=== PATIENT | female | born 1965 | race African-American/Black ===

== ENCOUNTER 2017-05-03 09:49 | Emergency (ER) | payer OTHER ==
[2017-05-03 09:56] VITALS: BP 149/79; PULSE 82; TEMP 98.8; BMI 34.2
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
[2017-05-03] MEDS ORDERED: IBUPROFEN 600 MG TABLET (FP) PO ONE (10:48)
[2017-05-03] MEDS ORDERED: IBUPROFEN 400 MG TABLET (FP) PO ONE (10:50)
== END 2017-05-03 11:26 | disposition home or self-care (01) ==
LOC: JERFT 09:49
PROC: 2W3CX1Z Immobilization of Right Lower Arm using Splint (ICD-10-PCS; principal; 2017-05-03)
DX: S62.101A Fracture of unspecified carpal bone, right wrist, initial encounter for closed fracture (principal); W18.39XA Other fall on same level, initial encounter; Y93.89 Activity, other specified; Y92.9 Unspecified place or not applicable; J45.909 Unspecified asthma, uncomplicated; F17.210 Nicotine dependence, cigarettes, uncomplicated
CPT/HCPCS: 73110-TC-RT-FY; 73130-TC-RT-FY; 99282-25

== ENCOUNTER 2017-05-09 14:10 | Day surgery (SDC) | payer OTHER ==
[2017-05-08 14:14] VITALS: BMI 34.2
--- NOTE | 2017-05-09 14:08 | HP ---
[facility] - Chief Complaint Chief Complaint: right wrist fx - Past Medical History Allergies/Adverse Reactions: Allergies Allergy/AdvReac Type Severity Reaction Status Date / Time Penicillins Allergy Unknown Verified 05/08/17 14:15 seafood Allergy Severe throat Uncoded 05/08/17 14:15 closure - Current Medications Current Medications: Home Medications Medication Instructions Recorded Albuterol Sulfate Inhaler - 1 - 2 inh PO QID PRN 05/08/17 [Ventolin HFA Inhaler -] Hydrochlorothiazide 12.5 mg PO DAILY 05/08/17 Satellite Physical Exam - Physical Examination General Appearance: Well Nourished, Well Developed, Alert & Oriented x3 ENT: Clear Lung: Normal air movement Heart: Regular rate & rhythm Extremities: Other (right wrist- splint intact, + swelling, + ttp, nvi xrays show dsiplaced distal radius fx) Neurological: Intact, Alert, Oriented Satellite Impression/Plan - Impression/Plan Impression: right distal radius fx Operative Procedure: right distal radius orif Date to be Performed: 05/09/17
[~2017-05-09 14:10] MED LIST: LACTATED RINGERS SOLUTION 1,000 ML IV SCH; ONDANSETRON 4 MG/2 ML VIAL IVPUSH PRN; oxyCODONE HCL 5 MG TABLET PO PRN
[2017-05-09] MEDS ORDERED: BUPIVACAINE HCL/PF 0.5% (5MG/ML) 10 ML VIAL ONE ×2 (14:28→15:59)
[2017-05-09] MEDS ORDERED: DEXAMETHASONE SOD PHOSPHATE/PF 10 MG/ML SDV ONE (14:28)
[2017-05-09] MEDS ORDERED: MIDAZOLAM HCL 2 MG/2 ML SINGLE DOSE VIAL ONE ×2 (14:31)
[2017-05-09] MEDS ORDERED: DEXAMETHASONE SOD PHOSPHATE 4 MG/1 ML VIAL ONE ×2 (16:08→17:13)
[2017-05-09] MEDS ORDERED: LIDOCAINE HCL/PF 2% SDV 5ML VIAL ONE (16:09)
[2017-05-09] MEDS ORDERED: PROPOFOL 20 ML ONE (16:10)
[2017-05-09] MEDS ORDERED: CLINDAMYCIN 600 MG PREMIX BAG IVPB ONE (16:20)
[2017-05-09] MEDS ORDERED: CLINDAMYCIN PHOSPHATE 600 MG/4 ML VIAL ONE (16:20)
--- NOTE | 2017-05-09 17:33 | OP ---
Operative Note - Note: Operative Date: 05/09/17 Pre-Operative Diagnosis: right distal radius fracture Operation: right distal radius ORIF Implants: [employer] low profile DV plate and screws Surgeon: Jaime Zaldivar Special Education Assistant: Billy Light Anesthesiologist/SUPERVISOR [employer]: Avi Cadena Anesthesia: General, Local Estimated Blood Loss (mls): 0 Drains, Volume Out (mls): 0 Blood Volume Replaced (mls): 0 Fluid Volume Replaced (mls): 500 Operative Report Dictated: Yes
--- NOTE | 2017-05-09 18:17 | SPEC ---
DATE OF OPERATION: 05/09/2017 PREOPERATIVE DIAGNOSIS: Right distal radius fracture. POSTOPERATIVE DIAGNOSIS: Right distal radius fracture. PROCEDURE: Right distal radius open reduction internal fixation. SURGEON: Jaime Zaldivar M.D. CRUSHED STONE GRADER: Gabrielle Pro ANESTHESIOLOGIST: Avi Cadena M.D. ANESTHESIA: Right interscalene block and LMA anesthesia. DRAINS: None. COMPLICATIONS: None. SPECIMEN: None. IMPLANTS USED: [employer] standard plate with screws. BLOOD LOSS: None. BLOOD GIVEN: None. FLUID REPLACEMENT: 700 mL Plasmalyte. INDICATION: This patient is a 52-year-old female with preoperative diagnosis of displaced angulated right distal radius fracture. After understanding the potential risks, complications, alternatives, benefits to surgery versus nonsurgical treatment, the patient elected to pursue this procedure. DESCRIPTION OF PROCEDURE: Patient brought to operating room, peripheral IV placed, IV sedation given. She received a right interscalene block. LMA anesthesia was introduced. She received 600 mg of clindamycin. The entire case was done under 3.8 loupe magnification. Typical FCR approach was marked out with a marking pen and incision made with No. 15 scalpel blade. Subcutaneous hemostasis was achieved with a bipolar cautery. The radial artery was retracted gently in a radial direction and ulnar to this, using a fresh No. 15 scalpel blade, the muscular fascia was incised. Blunt dissection was done with my index finger down to the volar aspect of the distal radius. Weitlaner retractors were placed deep into the wound for visualization. A periosteal elevator was used to do subperiosteal dissection exposing the fracture site. There was a main transverse component to the distal radius fracture but in addition there were several pieces, some extending towards the radial carpal joint and some towards the distal radial ulnar joint. The fracture site was copiously irrigated and washed out. All debris including hematoma and muscle were removed. A provisional reduction was performed and seemed to come together quite nicely. There was a small metaphyseal defect. X-rays were taken in A-P and lateral planes documenting excellent position of the fracture fragments, restoring radial height inclination and volar tilt. Next a standard hand innovations left volar low profile DVR plate was placed on the volar aspect of the distal radius. Two K-wires were placed and x-rays were taken documenting excellent position, length and subchondral position. Next the central 3.5 mm screw was placed in a standard fashion, this was 12 mm in length, and the second-most ulnar proximal row screw was placed. This was a 24 mm partially threaded locking screw. X-rays again were taken documenting excellent position and support of the subchondral bone. The rest of the screws were then put in, first 2 additional purple proximal screws of 12 and 14 mm in length for 6 cortices proximally and then the silver drill bit was used to put in the remaining 6 screws of both the proximal and distal row from 14 mm to 20 mm of length, all partially threaded locking screws. All of the guides were removed and passed off the field. Final x-rays were taken in A-P and lateral planes. I was quite happy with the fracture reduction position, position of the radial carpal joint, distal radial ulnar joint length, height and tilt. Total tourniquet time was 50 minutes. There no complications during the case. The patient tolerated the procedure well, was brought to ambulatory recovery. An [id number]
[2017-05-09 18:49] VITALS: TEMP 98.5
[2017-05-09 19:48] VITALS: BP 138/66; PULSE 77
== END 2017-05-09 19:35 | disposition home or self-care (01) ==
LOC: JASU-SURG 14:10
PROVIDERS: ATTEND Orthopaedic Surgery
PROC: 0PSH04Z Reposition Right Radius with Internal Fixation Device, Open Approach (ICD-10-PCS; principal; 2017-05-09 16:00)
DX: S52.591A Other fractures of lower end of right radius, initial encounter for closed fracture (principal); X58.XXXA Exposure to other specified factors, initial encounter; Y93.9 Activity, unspecified; Y92.9 Unspecified place or not applicable; Y99.9 Unspecified external cause status
CPT/HCPCS: 25607; C1713; 36415; 76000-TC-FY; 84703; 94760